=== PATIENT | male | born 1955 | race Caucasian/White ===

== ENCOUNTER → 2017-02-08 11:20 | Outpatient (CLI) | payer MEDICARE | END | disposition home or self-care (01) | LOC: D.MRI 11:20 | DX: M25.512 Pain in left shoulder (principal) ==

== ENCOUNTER → 2018-02-28 13:53 | Outpatient (CLI) | payer MEDICARE | END | disposition home or self-care (01) | LOC: D.MRI 13:53 | DX: M54.2 Cervicalgia (principal) ==

== ENCOUNTER → 2019-10-01 08:23 | Outpatient (CLI) | payer OTHER | END | disposition home or self-care (01) | LOC: D.HCCARDIO 08:23 | PROVIDERS: ATTEND Internal Medicine Cardiovascular Disease | DX: I25.10 Atherosclerotic heart disease of native coronary artery without angina pectoris (principal) ==

== ENCOUNTER 2019-10-13 07:30 | Outpatient (CLI) | payer OTHER ==
[~2019-10-13] VITALS: Ht 182.9 cm; Wt 127.3 kg
--- NOTE | ~2019-10-13 | HEMODYNAMI ---
PATIENT:BRIGIDA [place] MEDICAL RECORD: [id number] : 53 LOCATION:[facility] ADMISSION DATE: 10/13/19 Generatedon:10/13/201911:08 Patient name: BRIGIDA [place] Patient #: [id number] SSN: [id number] : 1955 Date of study: 10/13/2019 Page: Of Hemodynamic Procedure Report Patient Data Patient Demographics Procedure consent was obtained First Name: BRIGIDA Gender: Male Last Name: YANELY : 1955 [facility] Initial: JESSIE Age: 63 year(s) Patient #: [id number] Race: SSN: [id number] Additional ID: [id number] Contact details [address]: [address] [place] [address] State: [place] City: [place] Zip code: [address] Past Medical History Allergies Allergen Reaction Date Comments Reported Other allergy 10/13/2019 N Admission Admission Data Admission Date: 10/13/2019 Admission Time: 7:30 Arrival Date: 10/13/2019 Arrival Time: 0:00 Height (in.): 72.05 BSA: 2.46 (m2) Height (cm.): 183 BMI: 37.92 (kg/m2) Weight (lbs.): 279.99 Weight (kg.): 127 Lab Results Lab Result Date: 10/13/2019 Lab Result Time: 0:00 Biochemistry Name Units Result Min Max BUN mg/dl 10 --(-*--)-- 7 18 Creatinine mg/dl 1 --(--*-)-- 0.6 1.3 eGFR ml/min 79.09621 *-(----)-- 90 120 NONAFRICAN CBC Name Units Result Min Max Hematocrit % 38.3 *-(----)-- 42 54 Hemoglobin g/dl 13 -*(----)-- 13.5 17.5 Procedure Procedure Types Cath Procedure Diagnostic Procedure [facility] w/Coronaries Sedation Charges Moderate Sedation up to 30 minutes PCI Procedure Coronary Stent Coronary Stent Initial Hemochron ACT Test Procedure Description Procedure Date Procedure Date: 10/13/2019 Procedure Start Time: 10:36 Procedure End Time: 11:06 Procedure Staff Name Function Stepan Escalante MD Performing Physician Sharon Felder RT Monitor Edith Candelaria RT Scrub Faith Alanis RN Nurse Procedure Data Cath Procedure Fluoroscopy Diagnostic fluoroscopy Total fluoroscopy Time: 6.6 time: 6.6 min min Diagnostic fluoroscopy Total fluoroscopy dose: dose: 1209 mGy 1209 mGy Contrast Material Contrast Material Type Amount (ml) Isovue 300 93 Entry Location Entry Primary Successful Side Size Upsize Upsize Entry Closure Velazquez ccessful Closure Location (Fr) 1 (Fr) 2 (Fr) Remarks Device Remarks Radial Right 6 Fr Mechanical artery Short Compression Femoral Right 6 Fr Exoseal artery Short Estimated blood loss: 10 ml Diagnostic catheters Device Type Used For End Catheter Placement DIAGNOSTIC [place] 110cm 5 Procedure Fr catheter ([id number]) Procedure Complications No complications Procedure Medications Medication Administration Route Dosage 0.9% NaCl I.V. 100 ml/hr Oxygen etCO2 Nasal cannula 2 l/min Lidocaine 2% added to field 20 Heparin Flush Bag added to field 2 bags (1000units/500ml NS) Radial Cocktail added to field 1 syringe (Verapamil 2mg/Nitro 400mcg/Heparin 1500units) Versed I.V. 2 mg Fentanyl I.V. 50 mcg Heparin Bolus I.V. 5000 units Integrilin (Bolus I.V. 11.3 ml 2mg/ml) Integrilin (Bolus wasted 8.7 ml 2mg/ml) Plavix P.O. 600 mg Hemodynamics Rest BSA: 2.46 (m2) O2 Consumption: Estimated: 294.42 (ml/min) O2 Consumption indexed : Estimated:119.68 (ml/min/m) Heart Rate: 78 (bpm) Pressure Samples Time Site Value (mmHg) Purpose Heart Use Rate(bpm) 10:39 LV 135/14,21 Snapshot 102 10:40 AO 116/93(102) Pullback 81 10:40 LV 115/7,23 Pullback 81 Gradients Valve Time Site 1 Site 2 Mean SEP/DFP Peak To Heart Use (mmHg) (sec/min) Peak Rate (mmHg) (bpm) Aortic 10:40 LV AO 0 81 115/7,23 116/93(102) Calculations Valve P-P Mean Valve Index Valve Source Name Gradient Area Flow (cm2) Aortic 0 0 Snapshots Pre Cath Intra NCS Post Cath Vital Signs Time Heart Resp SPO2 etCO2 NIBP (mmHg) Rhythm Pain Sedation Rate (ipm) (%) (mmHg) Status Level (bpm) 10:26:04 82 35 100 33.9 133/95(123) A-Fib 0 (11) 10(A) , No pain 10:30:33 81 16 99 9.8 132/81(107) A-Fib 0 (11) 10(A) , No pain 10:35:03 79 17 98 30.9 126/73(102) A-Fib 0 (11) 9(A) , No pain 10:39:31 107 12 99 37.7 118/75(108) A-Fib 0 (11) 9(A) , No pain 10:43:55 82 19 98 33.9 114/72(95) A-Fib 0 (11) 9(A) , No pain 10:48:16 80 19 100 33.2 122/81(99) A-Fib 0 (11) 9(A) , No pain 10:52:38 83 20 100 32.4 124/83(92) A-Fib 0 (11) 9(A) , No pain 10:57:04 74 19 100 30.1 131/72(115) A-Fib 0 (11) 10(A) , No pain 11:01:28 81 40 100 36.2 136/88(102) A-Fib 0 (11) 10(A) , No pain 11:05:57 81 20 100 31.7 131/82(101) A-Fib 0 (11) 10(A) , No pain Medications Time Medication Route Dose Verified Delivered Reason Not es Effectiveness by by 10:24:51 0.9% NaCl I.V. 100 Stepan Dangyla used for ml/hr Ava Zeke procedure RN 10:24:57 Oxygen etCO2 2 l/min Stepan Cuevas used for Nasal Ava Zeke procedure cannula MD SIERRA 10:25:05 Lidocaine 2% added 20ml Stepan Ying used for to vial Ava Ava procedure field MD WOO 10:25:10 Heparin Flush added 2 bags Stepan Ying used for Bag to Ava Ava procedure (1000units/500ml field MD WOO NS) 10:25:18 Radial Cocktail added 1 Stepan Ying used for (Verapamil to syringe [facility] procedure 2mg/Nitro field MD WOO 400mcg/Heparin 1500units) 10:33:02 Fentanyl I.V. 50 mcg Stepan Faith for sedation Mostly Kaibeto Zeke sleeping @ MD SIERRA 10:53:10 10:33:53 Versed I.V. 2 mg Stepan Faith for sedation Mostly Kaibeto Zeke sleeping @ RN 10:53:09 10:48:50 Heparin Bolus I.V. 5000 Stepan Faith for cuca ified units [facility] anticoagulation by Dr. MD SIERRA Cooter 10:49:05 Integrilin I.V. 11.3 ml Stepan Faith for (Bolus 2mg/ml) [facility] Alanis antiplatelet RN therapy 10:49:23 Integrilin wasted 8.7 ml Stepan Faith for (Bolus 2mg/ml) [facility] Alanis antiplatelet RN therapy 10:49:32 Plavix P.O. 600 mg Stepan Dangyla for [facility] Everardo Alanis antiplatelet RN therapy Procedure Log Time Note 10:05:51 Informed consent obtained and on chart 10:06:11 Procedure Status Elective Heart Cath (OP). 10:06:13 Time tracking: Regular hours (M-F 7:00 - 5:00) 10:06:16 Plan of Care:Hemodynamics will remain stable., Cardiac rhythm will remain stable., Comfort level will be maintained., Respiratory function will remain adequate., Patient/ family verbilizes understanding of procedure., Procedure tolerated without complication., Recovers from procedure without complications.. 10:06:20 Sharon HODGES(R) (CV) sent for patient. Start room use. 10:06:33 H&P Date Dictated: 09/18/2019 Within 30 days and on chart., H&P Addendum completed by physician on day of procedure. (MUST COMPLETE FOR ALL OUTPATIENTS). 10:14:52 Lab Result : Hemoglobin 13 g/dl 10:14:52 Lab Result : eGFR NONAFRICAN 79.44751 ml/min 10:14:52 Lab Result : BUN 10 mg/dl 10:14:52 Lab Result : Creatinine 1 mg/dl 10:14:52 Lab Result : Hematocrit 38.3 % 10:15:09 Patient allergic to Other allergyPCN 10:15:44 Arrival Date: 10/13/2019 12:00:00 AM 10:15:48 Patient Height : 72.05 inches 10:15:55 Patient Weight : 279.99 lbs 10:17:47 Patient received from Pre/Post Procedure Room to CCL 1 Alert and oriented. Tansferred to table in Supine position. 10:17:48 Warm blankets applied, and lubna hugger turned on for patient comfort. 10:17:49 Correct patient and procedure confirmed by team. 10:17:50 ECG and BP/O2 sat monitors applied to patient. 10:18:19 Lab results completed and on chart. 10:18:32 Stress Test: yes; abnormal INFERIOR AND APICALLY 10:24:42 Vital chart was started 10:24:51 0.9% NaCl 100 ml/hr I.V. was administered by Faith Alanis RN; used for procedure; Verbal order read back and verified. 10:24:57 Oxygen 2 l/min etCO2 Nasal cannula was administered by Faith Alanis RN ; used for procedure; Verbal order read back and verified. 10:25:05 Lidocaine 2% 20ml vial added to field was administered by Stepan Escalante MD; used for procedure; Verbal order read back and verified. 10:25:10 Heparin Flush Bag (1000units/500ml NS) 2 bags added to field was administered by Stepan Escalante MD; used for procedure; Verbal order read back and verified. 10:25:18 Radial Cocktail (Verapamil 2mg/Nitro 400mcg/Heparin 1500units) 1 syring e added to field was administered by Stepan Escalante MD; used for procedure; Verbal order read back and verified. 10:29:17 Risk of Mortality: 0.1 10:29:21 Risk of blood transfusion: 0.1 10:29:24 Risk of MONA: 0.1 10:29:35 Use device set Radial Dx or PCI 10:29:37 ACIST Syringe (98780) opened to sterile field. 10:29:38 Medline Cath Pack ([id number]) opened to sterile field. 10:29:39 Bag Decanter (2002S) opened to sterile field. 10:29:40 ACIST Hand Control (49321) opened to sterile field. 10:29:41 ACIST Manifold (25660) opened to sterile field. 10:29:42 MBrace Wrist Support ([id number]) opened to sterile field. 10:29:45 EMERALD Guide Wire (284-780) opened to sterile field. 10:29:47 SHEATH 6FR RAIN (3931243) opened to sterile field. 10:29:59 Baseline sample Acquired. 10:30:04 Rhythm: atrial fibrillation 10:30:08 Full Disclosure recording started 10:30:10 - 10:30:11 Pre-procedure instructions explained to patient. 10:30:12 Pre-op teaching completed and patient verbalized understanding. 10:30:14 Family in patients room. 10:30:16 Patient NPO since Midnight. 10:30:22 Is the patient allergic to Iodine/contrast media? No. 10:30:25 Was the patient premedicated? Yes 10:30:28 Is patient on blood thinner?Yes 10:30:44 ACC The patient was administered the following blood thiners within the last 24 hours: Eliquis 10:30:58 Patient diabetic? Yes. 10:31:01 If diabetic: On Metformin? Yes 10:31:16 If on Metformin: Last Dose? 10/12/2019 10:31:18 ----Pre-sedation anethsthesia assessment.---- 10:31:28 Previous problem with sedation/anesthesia? No ? 10:31:31 Snore? Yes 10:31:34 Sleep apnea? No 10:31:38 Deviated septum? Unknown 10:31:44 Opens mouth fully? Yes 10:31:47 Sticks out tongue? Yes 10:31:50 Airway obstruction? No ? 10:31:55 Dentures? No ? 10:32:05 Pre procedure: right dorsailis pedis pulse 1+ Palpable, but thready & weak; easily obliterated 10:32:18 IV patent on arrival in left forearm with 0.9% NaCl at KVO. 10:32:27 Right Radial & Right Groin area was prepped with chlora-prep and draped in sterile fashion 10:32:29 Alarms reviewed by R. N. 10:32:30 Sharps counted by scrub and verified by R.N. 10:32:32 Physician arrived 10:32:34 --------ALL STOP TIME OUT------ 10:32:34 Final Timeout: patient, procedure, and site verified with staff and physician. All members of the team are in agreement. 10:32:43 Right Radial & Right Groin site verified by team. 10:32:49 Fire Safety Assessment: A--An alcohol-based skin anteseptic being used preoperatively., C--Open oxygen or nitrous oxide is being used., D--An ESU, laser, or fiber-optic light is being used. 10:32:53 Physical assessment completed. ASA score P 2 - A patient with mild systemic disease as per Stepan Escalante MD. 10:33:01 2) 60-89 Mildly reduced kidney function, and other findings (as for stage 1) point to kidney disease. 10:33:02 Fentanyl 50 mcg I.V. was administered by Faith Alanis RN; for sedation ; Verbal order read back and verified. 10:33:19 Maximum allowable contrast dose (3.7 X eGFR X 0.75)222 ml. 10:33:25 Sedation plan: IV Moderate Sedation Medication:Versed, Fentanyl 10:33:31 Procedure started. 10:33:53 Versed 2 mg I.V. was administered by Faith Alanis RN; for sedation; Verbal order read back and verified. 10:35:35 Zero performed for pressure channel P1 10:36:25 Local anesthetic to right radial artery with Lidocaine 2% by Stepan Escalante MD.INITIAL ACCESS ONLY 10:36:39 A 6 Fr Short sheath was inserted into the Right Radial artery 10:38:11 A DIAGNOSTIC [place] 110cm 5 Fr catheter ([id number]) was advanced over the wire and used for Procedure. 10:39:26 LV gram done using SUTHERLAND 10:39:30 Injector settings: Ml/sec: 5, Volume: 15, 10:39:37 LV hemodynamics recorded. 10:40:09 EF : 55 % 10:40:33 RCA angiography performed. 10:40:37 Injector settings: Ml/sec: 3, Volume: 6, 10:42:13 Catheter removed. 10:42:28 GUIDE 6FR XBLAD 3.5 catheter ([id number]) opened to sterile field. 10:42:58 LCA angiography performed WITH THE 6 MONGOLIAN xblad 3.5 guide. 10:43:39 Injector settings: Ml/sec: 3, Volume: 6, 10:44:25 Catheter removed. 10:44:26 Proceeding to intervention. 10:47:03 Local anesthetic to right femoral artery with Lidocaine 2% by Stepan Mcgee MD.ADDITIONAL ACCESS 10:47:14 SHEATH 6FR [place] (HMI391) opened to sterile field. 10:47:23 INFLATOR Merit BasixCompak (AH2431) opened to sterile field. 10:47:45 GUIDE 6FR HS I catheter (LA6HSI) opened to sterile field. 10:47:56 WHISPER 300cm guide wire ([id number]) opened to sterile field. 10:48:28 A 6 Fr Short sheath was inserted into the Right Femoral artery 10:48:39 6 Fr HS1 guide catheter was inserted over the wire 10:48:45 ACC Pre-intervention RAIMUNDO Flow is 3. 10:48:50 Heparin Bolus 5000 units I.V. was administered by Faith Alanis RN; for anticoagulation; verified by Dr. Morales Verbal order read back and verified. 10:49:05 Integrilin (Bolus 2mg/ml) 11.3 ml I.V. was administered by Faith lacy RN; for antiplatelet therapy; Verbal order read back and verified. 10:49:20 Pre PCI Site: [place] dRCA has 90% stenosis. 10:49:23 Integrilin (Bolus 2mg/ml) 8.7 ml wasted was administered by Faith Alanis RN; for antiplatelet therapy; Verbal order read back and verified. 10:49:26 [id number] wire advanced. 10:49:32 Plavix 600 mg P.O. was administered by Faith Alanis RN; for antiplatelet therapy; Verbal order read back and verified. 10:52:10 Inflate balloon Inflation number: 1 A EUPHORA 3.0 x 15 Balloon ([id number]) was prepped and advanced across the Dist RCA , then inflated to 8 CATA for 0:15 (min:sec) . 10:52:21 Inflation number: 2 The EUPHORA 3.0 x 15 Balloon ([id number]) was reinflated across the Dist RCA , to 10 CATA for 0:00 (min:sec) . 10:52:52 Inflation number: 3 The EUPHORA 3.0 x 15 Balloon ([id number]) was reinflated across the Dist RCA , to 12 CATA for 0:21 (min:sec) . 10:53:09 Effectiveness of Versed delivered @ 10:33:53 is: Mostly sleeping 10:53:10 Effectiveness of Fentanyl delivered @ 10:33:02 is: Mostly sleeping 10:53:14 Inflation number: 4 The EUPHORA 3.0 x 15 Balloon ([id number]) was reinflated across the Dist RCA , to 12 CATA for 0:15 (min:sec) . 10:53:47 Inflation number: 5 The EUPHORA 3.0 x 15 Balloon ([id number]) was reinflated across the Dist RCA , to 12 CATA for 0:09 (min:sec) . 10:54:58 Inflation number: 6 The EUPHORA 3.0 x 15 Balloon ([id number]) was reinflated across the Dist RCA , to 12 CATA for 0:15 (min:sec) . 10:55:25 Balloon removed over the wire. 10:57:55 Place stent Inflation Number: 1 A MICA OTW 3.0 x 22 stent ([id number]) was prepped and advanced across the Dist RCA1 . The stent was deployed at 14 CATA for 0:21 (min:sec) . 10:58:24 Stent catheter was removed intact over wire. 10:58:27 ACC Post-intervention RAIMUNDO Flow is 3. 10:58:36 Post PCI Site: [place] dRCA has 0% stenosis. 10:58:41 Wire removed. 10:58:42 Guide catheter removed. 10:58:46 TR BAND Large ([id number]) opened to sterile field. 10:58:54 Tegaderm 4 x 4 (1626W) opened to sterile field. 10:59:41 EXOSEAL 6Fr (EX600) opened to sterile field. 11:01:08 Sheath removed intact; hemostasis achieved with Exoseal to the Right Femoral artery. 11:01:22 Sheath removed intact; hemostasis achieved with Mechanical Compression to the Right Radial artery. 11:02:36 Procedure ended.(Physican Out) 11:02:54 Contrast amount:Isovue 300 93ml. 11:03:03 ACT drawn and resulted at 247 seconds. (normal therapeutic range 180-24 0 seconds). 11:03:03 Fluoroscopy time 06.60 minutes. 11:03:09 Fluoroscopy dose: 1209 mGy 11:03:09 Flurop Dose total: 1209 11:03:17 Dose Area Product 94239 mGy/cm. 11:03:21 Maximum allowable dose exceeded? No. 11:03:22 Sharps counted by scrub and verified by R.N. 11:03:29 [place] band inflated with 10cc of air. 11:03:30 Insertion/operative site no bleeding no hematoma. 11:03:36 Post-op/insertion site Right Femoral artery dressed using a 4 x 4 and Tegaderm. 11:03:42 Post right femoral artery:stable 11:03:49 Post right radial artery:stable 11:03:55 Post-procedure physical assessment completed. ASA score P 2 - A patient with mild systemic disease as per Stepan Escalante MD. 11:04:11 Post procedure rhythm: unchanged. 11:04:16 Estimated blood loss: 10 ml 11:04:17 Post procedure instruction explained to patient.Patient verbalizes understanding. 11:04:18 Patient needs reinforcement of post procedure teaching. 11:05:08 Procedure type changed to Cath procedure, Diagnostic procedure, LHC, C w/Coronaries, Sedation Charges, Moderate Sedation up to 30 minutes, PCI procedure, Coronary Stent, Coronary Stent Initial, Hemochron ACT Test 11:05:11 Procedure and supply charges have been captured, reviewed, submitted an d are correct. 11:06:19 Procedure Complication : No complications 11:06:22 Vital chart was stopped 11:06:25 [facility] Findings: MVD- PCI performed (see procedure note) 11:06:29 Operative report dictated upon procedure completion. 11:06:30 See physician's report for complete and final results. 11:06:32 Report given to Pre/Post Procedure Room. 11:06:36 Patient transfered to Pre/Post Procedure Room with Stretcher. 11:06:39 Procedure ended. 11:06:39 Full Disclosure recording stopped 11:06:52 ACC-PCI Only Patient was given prescriptions, or instructed by Stepan Escalante MD to start/continue the following medications upon discharge: Plavix 11:06:55 End room use (Document Last) Intervention Summary Intervention Notes Time ActionType Lesion and Equipment Action# Pressure Duration Attributes Used 10:52:10 Inflate Dist RCA EUPHORA 3.0 x 1 8 00:15 balloon 15 Balloon ([id number]) 10:52:21 Reinflate Dist RCA EUPHORA 3.0 x 2 10 00:00 balloon 15 Balloon ([id number]) 10:52:52 Reinflate Dist RCA EUPHORA 3.0 x 3 12 00:21 balloon 15 Balloon ([id number]) 10:53:14 Reinflate Dist RCA EUPHORA 3.0 x 4 12 00:15 balloon 15 Balloon ([id number]) 10:53:47 Reinflate Dist RCA EUPHORA 3.0 x 5 12 00:09 balloon 15 Balloon ([id number]) 10:54:58 Reinflate Dist RCA EUPHORA 3.0 x 6 12 00:15 balloon 15 Balloon ([id number]) 10:57:55 Place stent Dist RCA1 MICA OTW 3.0 1 14 00:21 x 22 stent ([id number]) Device Usage Item Name Manufacture Quantity Catalog Hospital Part Current Mini mal Lot# / Number Charge Number Stock Stock Serial# Code ACIST Syringe Acist 1 42945 145233 064493 160556 20 (36249) Medical Systems Inc Medline Cath Medline 1 [id number] 675161 67862 211028 5 Pack ([id number]) Bag Decanter Microtek 1 978471 47378 857293 5 () Medical Inc. ACIST Hand Acist 1 95567 574679 937610 870743 5 Control Medical (95971) Systems Inc ACIST Acist 1 18178 354764 106014 598326 5 Manifold Medical (03491) Systems Inc MBrace Wrist Advanced 1 140-0250-00 958654 06714 633370 5 Support Vascular ([id number]) Dynamics EMERALD Guide Cardinal 1 521-443 867750 061304 223945 5 Wire Health (648-659) SHEATH 6FR Cardinal 1 2309582 900363 0294829 298709 5 RAIN Health (3977623) DIAGNOSTIC Terumo 1 40-8830 289895 196815 491013 5 [place] 110cm 5 Fr catheter (509875) GUIDE 6FR Cardinal 1 [id number] 620948 245352 998733 10 XBLAD 3.5 Health catheter (20697996) SHEATH 6FR Terumo 1 JBV601 386459 727378 157954 40 [place] (SXG732) INFLATOR Merit 1 GA3624 297595 047012 888733 15 [facility] Medical BasixCompak (BW0672) GUIDE 6FR HS Medtronic 1 LA6HSI 678178 90433 801113 1 I catheter (LA6HSI) WHISPER 300cm Rae 1 [id number] 135742 968194 357457 5 guide wire Vascular (0446528WX) EUPHORA 3.0 x Medtronic 1 [id number] 008910 913138 003342 5 [id number] 15 Balloon ([id number]) MICA OTW 3.0 Medtronic 1 [id number] 218740 9693582 382698 5 [id number] x 22 stent ([id number]) Tegaderm 4 x 3M 1 1626W 127917 122108 961471 5 4 (1626W) EXOSEAL 6Fr Cardinal 1 EX600 211194 622428 762011 10 (EX600) Health TR BAND Large Terumo 1 [id number] 714138 474698 620698 40 ([id number]) Signature Audit [place] Stage Time Signature Unsigned Intra-Procedure 10/13/2019 Sharon 11:07:14 AM Emerita RT(R) (CV) Intra-Procedure 10/13/2019 Faith Alanis 11:07:44 AM RN Intra-Procedure 10/13/2019 Stepan Acharya 11:08:10 AM Everardo WOO [facility] [address] [place] [address]
[2019-10-13] MEDS ORDERED: OMEPRAZOLE20 M1 PO (07:54)
[2019-10-13] MEDS ORDERED: ELIQUIS5 MG PO (07:54)
[2019-10-13] MEDS ORDERED: SINEMET 25-1001 EAC1 PO (07:55)
[2019-10-13] MEDS ORDERED: PRAVASTATIN SOD10 MG PO (07:55)
[2019-10-13] MEDS ORDERED: ROPINIROLE HCL0.5 MG PO (07:55)
[2019-10-13] MEDS ORDERED: BENICAR40 MG PO (07:56)
[2019-10-13] MEDS ORDERED: GLUCOPHAGE1000 MG PO (07:56)
[2019-10-13] MEDS ORDERED: FUROSEMIDE40 MG PO (07:56)
[2019-10-13] MEDS ORDERED: BAYER CHEWABLE81 MG PO (07:57)
[2019-10-13 08:06] VITALS: BP 163/98; Ht 182.9 cm; Wt 127.3 kg
[2019-10-13 08:36] LABS: BASOPHILS 0.8 % (0-2); EOSINOPHILS 1.5 % (0-7); HEMATOCRIT 38.3 % (42.0-54.0); IMMATURE GRANULOCYTES 0.4 % (0-5); LYMPHOCYTES 25.3 % (15-50); MCH 30.2 pg (26.0-34.0); MCHC 33.9 g/dL (31.0-37.0); MCV 88.9 fL (80.0-100.0); MEAN PLATELET VOLUME 9.8 fL (7.4-10.4); MONOCYTES 12.2 % (2-11); NEUTROPHILS 59.8 % (40-80); PLATELET COUNT 268 10x3/uL (130-400); RBC 4.31 10x6/uL (4.20-6.10); RDW 13.8 % (11.5-14.5); WBC 5.2 10x3/uL (4.8-10.8)
[2019-10-13 08:50] LABS: ALT (SGPT) 13 U/L (10-68); CALC OSMOLALITY 270 mosm/kg (275-300); CALCIUM 8.9 mg/dL (8.5-10.1); CHLORIDE - SERUM 100 mmol/L (98-107); CHOL - HDL RATIO 3.7 ratio (2.3-4.9); CHOLESTEROL, TOTAL 129 mg/dL (0-200); GLUCOSE 127 mg/dL (74-106); HDL CHOLESTEROL 35 mg/dL (32-96); LDL CHOLESTEROL 70 mg/dL (0-100); POTASSIUM - SERUM 4.3 mmol/L (3.5-5.1); SODIUM 135 mmol/L (136-145); TRIGLYCERIDE 120 mg/dL (30-200); UREA NITROGEN 10 mg/dL (7-18); eGFR NON AFRICAN AMERICAN 80 mL/min (90-120)
[2019-10-13] MEDS ORDERED: PLAVIX75 MG PO (11:14)
--- NOTE | 2019-10-13 11:15 | NUR ---
PATIENT ARRIVED TO ROOM 3, PLACED ON CM. VSS ON ROOM AIR. RIGHT RADIAL SITE WITH Z BAND AND WRIST IMMOBILIZER IN PLACE, RIGHT GROIN 6F EXOSEAL WITH DRESSING IN PLACE, NO S/S OF BLEEDING OR HEMATOMA AT EITHER LOCATION. NO C/O PAIN, NUMBNESS, OR TINGLING. PHYSICIAN AT BEDSIDE TO UPDATE SPOUSE. PATIENT GIVEN WATER PER REQUEST, TOLERATING WITH NO N/V.
--- NOTE | 2019-10-13 11:30 | NUR ---
PATIENT AWAKE, SPOUSE PRESENT AT BEDSIDE ASSISTING PATIENT IN EATING TURKEY SANDWICH. VSS ON ROOM AIR. RIGHT GROIN AND RADIAL SITES ARE CDI, NO S/S OF BLEEDING OR HEMATOMA. NO C/O PAIN, NUMBNESS, OR TINGLING.
--- NOTE | 2019-10-13 12:00 | NUR ---
PATIENT AWAKE, VSS ON ROOM AIR. RIGHT GROIN AND RADIAL SITES ARE CDI, NO S/S OF BLEEDING OR HEMATOMA. PATIENT VOIDED 150CC OF YELLOW URINE WITH NO DIFFICULTY. TOLERATING PO FLUIDS, NO N/V. NO C/O PAIN, NUMBNESS, OR TINGLING.
--- NOTE | 2019-10-13 12:30 | NUR ---
PATIENT INTERMITTENTLY RESTING, VSS ON ROOM AIR. RIGHT GROIN AND RADIAL SITES ARE CDI, NO S/S OF BLEEDING OR HEMATOMA. NO C/O PAIN, NUMBNESS, OR TINGLING. NO N/V, TOLERATING PO FLUIDS AND FOOD. SPOUSE PRESENT AT BEDSIDE.
--- NOTE | 2019-10-13 13:00 | NUR ---
PATIENT RESTING, SPOUSE PRESENT AT BEDSIDE. VSS ON ROOM AIR. RIGHT GROIN DRESSING IS CDI, NO S/S OF BLEEDING OR HEMATOMA. RIGHT RADIAL SITE IS CDI, NO S/S OF BLEEDING OR HEMATOMA. NO C/O PAIN, NUMBNESS, OR TINGLING. 2+ PEDAL PULSES. NO N/V.
--- NOTE | 2019-10-13 13:30 | NUR ---
PATIENT RESTING, VSS ON ROOM AIR. RIGHT GROIN AND RIGHT RADIAL SITES ARE CDI, NO S/S OF BLEEDING OR HEMATOMA. NO C/O PAIN, NUMBNESS, OR TINGLING.
--- NOTE | 2019-10-13 14:00 | NUR ---
5CC OF AIR REMOVED FROM Z BAND, NO S/S OF BLEEDING OR HEMATOMA. HEAD OF BED ELEVATED TO 75 DEGREES. RIGHT GROIN DRESSING SITE IS CDI, NO S/S OF BLEEDING OR HEMATOMA. NO C/O PAIN, NUMBNESS, OR TINGLING. VSS ON ROOM AIR. NO N/V. SPOUSE PRESENT AT BEDSIDE.
--- NOTE | 2019-10-13 14:30 | NUR ---
REMAINING AIR REMOVED FROM Z BAND, NO S/S OF BLEEDING OR HEMATOMA. NO C/O PAIN, NUMBNESS, OR TINGLING. VSS ON ROOM AIR. RIGHT GROIN AND RIGHT RADIAL DRESSINGS ARE CDI, NO S/S OF BLEEDING OR HEMATOMA. NO N/V. PERIPHERAL IV REMOVED WITH CATHLON FULLY INTACT. PATIENT DISCONNECTED FROM MONITORS TO GET DRESSED.
--- NOTE | 2019-10-13 15:00 | NUR ---
PATIENT TRANSPORTED VIA WHEELCHAIR TO CAR WITH SPOUSE DRIVING, ALL BELONGINGS WITH PATIENT.
--- NOTE | 2019-10-14 13:08 | OP ---
PATIENT NAME: BRIGIDA NY MEDICAL RECORD: [id number] :53 LOCATION:D.CAT ADMISSION DATE: SURGEON: CINDY MUSTAFA MD DATE OF OPERATION: 10/13/2019 PROCEDURE: Left heart catheterization, selective coronary angiography, right radial and femoral approach. We used radial for diagnostic and femoral for intervention. FINDINGS: Left ventriculography in the 30-degree SUTHERLAND view: Normal wall motion and normal systolic function. CORONARY ANATOMY: LEFT MAIN: Left main is free of disease. LAD: Has multiple areas of 70% to 80% stenosis both pre and post-stent. CIRCUMFLEX: Moderate size circumflex free of disease. RIGHT CORONARY ARTERY: The distal portion has a long diffuse stenosis typical diabetic 90% to its most severe down to 80% at the takeoff of the PD and PL. PLAN: Intervention in a staged fashion with right coronary today and LAD at a later date. A 6-Kyrgyz sheath placed in the right femoral artery. Hockey stick guiding catheter provided excellent guide catheter support followed by a 300 cm Whisper wire, it was placed across the long diffuse 90% stenosis right down this portion of this vessel. Pre-deployment balloon used was a 3.0 x 15 mm [place] up and down the lesion up to 14 atmospheres. This showed some proximal dissection with some contrast hanging in discrete area. Otherwise, nice pumping in the distal vasculature. Next, stent deployed was a 3.0 x 22 mm Roney drug-eluting stent up to 14 atmospheres for 45 seconds. Final angiography shows excellent resolution of the entire stenosis. No significant residual. RAIMUNDO flow was 3 throughout the procedure. There was excellent pumping in the distal vasculature as described above. Plavix loaded in the lab. Sheath closed with ExoSeal device. TR band on the radial side. TRANSINT:[id number] Voice Confirmation ID: [id number] DOCUMENT ID: [id number] CINDY MUSTAFA MD at 1308 CC: [id number] DICTATION DATE: 10/13/19 1108 PILATES COORDINATOR: 10/13/191951 DEP CLI 10/13/19 [facility] [address] [place] [address]
== END 2019-10-13 15:00 ==
LOC: D.CATH 07:30
PROVIDERS: ATTEND Internal Medicine Interventional Cardiology
DX: I25.10 Atherosclerotic heart disease of native coronary artery without angina pectoris (principal); I10 Essential (primary) hypertension
CPT/HCPCS: 93458; C9600

== ENCOUNTER 2019-11-10 06:42 | Outpatient (CLI) | payer OTHER ==
[~2019-11-10] VITALS: Ht 182.9 cm; Wt 123.4 kg
--- NOTE | ~2019-11-10 | HEMODYNAMI ---
PATIENT:BRIGIDA NY MEDICAL RECORD: [id number] : 53 LOCATION:DSamuelCAT ADMISSION DATE: 11/10/19 Generatedon:11/10/20199:05 Patient name: BRIGIDA NY Patient #: [id number] SSN: [id number] : 1955 Date of study: 11/10/2019 Page: Of Hemodynamic Procedure Report Patient Data Patient Demographics Procedure consent was obtained First Name: BRIGIDA Gender: Male Last Name: YANELY : 1955 [facility] Initial: JESSIE Age: 63 year(s) Patient #: [id number] Race: SSN: [id number] Additional ID: [id number] Contact details [address]: [address] [place] [address] State: [place] City: [place] Zip code: [address] Past Medical History Allergies Allergen Reaction Date Comments Reported Other allergy 10/13/2019 PCN Other allergy 11/10/2019 PENICILLINS Admission Admission Data Admission Date: 11/10/2019 Admission Time: 6:42 Arrival Date: 11/10/2019 Arrival Time: 0:00 Height (in.): 72.05 BSA: 2.43 (m2) Height (cm.): 183 BMI: 36.73 (kg/m2) Weight (lbs.): 271.17 Weight (kg.): 123 Lab Results Lab Result Date: 11/10/2019 Lab Result Time: 0:00 Biochemistry Name Units Result Min Max BUN mg/dl 9 --(*---)-- 7 18 Creatinine mg/dl 0.9 --(-*--)-- 0.6 1.3 eGFR ml/min 90 --(*---)-- 90 120 NONAFRICAN CBC Name Units Result Min Max Hematocrit % 37.4 *-(----)-- 42 54 Hemoglobin g/dl 12.7 -*(----)-- 13.5 17.5 Procedure Procedure Types Cath Procedure Diagnostic Procedure Sedation Charges Moderate Sedation up to 15 minutes PCI Procedure Coronary Stent Coronary Stent Initial Hemochron ACT Test Procedure Description Procedure Date Procedure Date: 11/10/2019 Procedure Start Time: 8:47 Procedure End Time: 9:03 Procedure Staff Name Function Stepan Escalante MD Performing Physician Sharon Felder RT Monitor Faith Alanis RN Nurse Coby Soto RT Scrub Edith Candelaria RT [employer] Commission Agent Procedure Data Cath Procedure Fluoroscopy Diagnostic fluoroscopy Total fluoroscopy Time: 3.1 time: 3.1 min min Diagnostic fluoroscopy Total fluoroscopy dose: 669 dose: 669 mGy mGy Contrast Material Contrast Material Type Amount (ml) Isovue 300 57 Entry Location Entry Primary Successful Side Size Upsize Upsize Entry Closure Succes sful Closure Location (Fr) 1 (Fr) 2 (Fr) Remarks Device Remarks Femoral Right 6 Fr Exoseal artery Short Estimated blood loss: 10 ml Procedure Complications No complications Procedure Medications Medication Administration Route Dosage 0.9% NaCl I.V. 100 ml/hr Oxygen etCO2 Nasal cannula 2 l/min Lidocaine 2% added to field 20 Heparin Flush Bag added to field 2 bags (1000units/500ml NS) Versed I.V. 2 mg Fentanyl I.V. 50 mcg Heparin Bolus I.V. 5000 units Hemodynamics Rest BSA: 2.43 (m2) HGB: 12.7 (g/dl) O2 Consumption: Estimated: 295.19 (ml/min) O2 Co nsumption indexed: Estimated:121.48 (ml/min/m) Heart Rate: 82 (bpm) Snapshots Pre Cath Intra NCS Post Cath Vital Signs Time Heart Resp SPO2 etCO2 NIBP (mmHg) Rhythm Pain Sedation Rate (ipm) (%) (mmHg) Status Level (bpm) 8:30:03 88 26 98 33.6 156/106(143) A-Fib 0 (11) 10(A) , No pain 8:34:38 78 18 93 23.9 156/99(134) A-Fib 0 (11) 10(A) , No pain 8:39:12 93 18 96 24.6 153/101(134) A-Fib 0 (11) 10(A) , No pain 8:43:41 86 17 96 35.8 154/103(141) A-Fib 0 (11) 10(A) , No pain 8:48:15 83 23 98 34.3 165/101(141) A-Fib 0 (11) 9(A) , No pain 8:52:47 95 20 97 32.1 158/96(122) A-Fib 0 (11) 9(A) , No pain 8:57:22 91 22 98 35.1 161/105(140) A-Fib 0 (11) 9(A) , No pain 9:01:58 86 20 97 13.4 151/94(130) A-Fib 0 (11) 10(A) , No pain Medications Time Medication Route Dose Verified Delivered Reason Notes Effectiveness by by 8:25:02 0.9% NaCl I.V. 100 Stepan Faith used for ml/hr [facility] Alanis procedure MD [facility]ERRA 8:25:09 Oxygen etCO2 2 Stepan Faith used for Nasal l/min [facility] Ever[facility] Alanis procedure cannula MD [facility] 8:25:14 Lidocaine 2% added 20ml Stepan Stepan for local to vial [facility] anesthetic field MD WOO 8:25:17 Heparin Flush added 2 Stepan Stepan used for Bag to bags [facility] procedure (1000units/500ml field MD WOO NS) 8:46:19 Versed I.V. 2 mg Stepan Faith for sedation St Everardo Alanis MD RN 8:46:24 Fentanyl I.V. 50 Stepan Faith for sedation mcg St Everardo Alanis MD RN 8:50:09 Heparin Bolus I.V. 5000 Stepan Faith for verifi ed units AvaEverardo Alanis anticoagulation with Dr. WOO RN Andrew Procedure Log Time Note 8:11:30 Informed consent obtained and on chart 8:12:41 Time tracking: Regular hours (M-F 7:00 - 5:00) 8:17:37 Procedure Status PCI. 8:18:39 Lab Result : eGFR NONAFRICAN 90 ml/min 8:18:39 Lab Result : Creatinine 0.9 mg/dl 8:18:39 Lab Result : BUN 9 mg/dl 8:18:39 Lab Result : Hematocrit 37.4 % 8:18:39 Lab Result : Hemoglobin 12.7 g/dl 8:18:59 Procedure type changed to Cath procedure, Diagnostic procedure, Sedation Charges, Moderate Sedation up to 15 minutes, PCI procedure, Coronary Stent, Coronary Stent Initial, Hemochron ACT Test 8:19:06 Arrival Date: 11/10/2019 12:00:00 AM 8:19:13 Patient Height : 72.05 inches 8:19:19 Patient Weight : 271.17 lbs 8:20:08 Edith Candelaria RT(R) sent for patient. Start room use. 8:20:15 Plan of Care:Hemodynamics will remain stable., Cardiac rhythm will remain stable., Comfort level will be maintained., Respiratory function will remain adequate., Patient/ family verbilizes understanding of procedure., Procedure tolerated without complication., Recovers from procedure without complications.. 8:20:28 Lab results completed and on chart. 8:20:57 Patient allergic to Other allergyPENICILLINS 8:21:43 Stress Test: yes; abnormal INFERIOR,APICAL, AND SEPTAL 8:25:02 0.9% NaCl 100 ml/hr I.V. was administered by Faith Alanis RN; used for procedure; Verbal order read back and verified. 8:25:09 Oxygen 2 l/min etCO2 Nasal cannula was administered by Faith Alanis RN; used for procedure; Verbal order read back and verified. 8:25:14 Lidocaine 2% 20ml vial added to field was administered by Stepan Escalante MD; for local anesthetic; Verbal order read back and verified. 8:25:17 Heparin Flush Bag (1000units/500ml NS) 2 bags added to field was administered by Stepan Escalante MD; used for procedure; Verbal order read back and verified. 8:28:20 Patient received from Pre/Post Procedure Room to CCL 1 Alert and oriented. Tansferred to table in Supine position. 8:28:21 Warm blankets applied, and lubna hugger turned on for patient comfort. 8:28:22 Correct patient and procedure confirmed by team. 8:28:22 ECG and BP/O2 sat monitors applied to patient. 8:28:26 Vital chart was started 8:28:28 Full Disclosure recording started 8:28:31 H&P Date Dictated: 11/10/2019 New H&P dictated by physician.. 8:28:37 Rhythm: sinus rhythm 8:28:41 Pre-procedure instructions explained to patient. 8:28:42 Pre-op teaching completed and patient verbalized understanding. 8:28:47 Family in patients room. 8:28:50 Patient NPO since Breakfast. 8:28:52 Is patient on blood thinner?Yes 8:28:57 ACC The patient was administered the following blood thiners within the last 24 hours: ACCPlavix 8:28:58 Patient diabetic? Yes. 8:29:00 If diabetic: On Metformin? Yes 8:29:56 Snore? Yes 8:29:57 Sleep apnea? No 8:29:58 Deviated septum? No 8:29:59 Opens mouth fully? Yes 8:29:59 Sticks out tongue? Yes 8:30:01 Airway obstruction? No ? 8:30:03 Dentures? No ? 8:30:05 Pre procedure: right dorsailis pedis pulse 1+ Palpable, but thready & weak; easily obliterated 8:30:15 IV patent on arrival in left hand with 0.9% NaCl at [facility]. 8:30:52 Risk of Mortality: .1 8:30:54 Risk of blood transfusion: .1 8:30:56 Risk of MONA: .1 8:31:00 Right groin area was prepped with chlora-prep and draped in sterile fashion 8:31:01 Alarms reviewed by R. N. 8:31:02 Sharps counted by scrub and verified by R.N. 8:31:07 Use device set CATH PACK 8:31:08 ACIST Syringe (01954) opened to sterile field. 8:31:08 ACIST Hand Control (67900) opened to sterile field. 8:31:09 ACIST Manifold (56916) opened to sterile field. 8:31:09 Medline Cath Pack ([id number]) opened to sterile field. 8:31:10 Bag Decanter (2002S) opened to sterile field. 8:31:10 EMERALD Guide Wire (502-058) opened to sterile field. 8:31:25 SHEATH 6FR Blackwell (ABY259) opened to sterile field. 8:31:25 INFLATOR Merit BasixCompak (GQ7932) opened to sterile field. 8:31:26 WHISPER 300cm guide wire ([id number]) opened to sterile field. 8:31:42 Baseline sample Acquired. 8:41:18 Physician arrived 8:41:20 --------ALL STOP TIME OUT------ 8:41:21 Final Timeout: patient, procedure, and site verified with staff and physician. All members of the team are in agreement. 8:41:23 Right groin site verified by team. 8:41:29 Fire Safety Assessment: A--An alcohol-based skin anteseptic being used preoperatively., C--Open oxygen or nitrous oxide is being used., D--An ESU, laser, or fiber-optic light is being used. 8:41:35 Physical assessment completed. ASA score P 2 - A patient with mild systemic disease as per Stepan Escalante MD. 8:41:39 1) 90+ Normal kidney functon but urine findings or structural abnormalities or genetic trait point to kidney disease. 8:41:44 Maximum allowable contrast dose (3.7 X eGFR X 0.75)250 ml. 8:41:51 Sedation plan: IV Moderate Sedation Medication:Versed, Fentanyl 8:45:04 Zero performed for pressure channel P1 8:46:19 Versed 2 mg I.V. was administered by Faith Alanis RN; for sedation; Verbal order read back and verified. 8:46:24 Fentanyl 50 mcg I.V. was administered by Faith Alanis RN; for sedation; Verbal order read back and verified. 8:47:10 Procedure started. 8:47:18 Local anesthetic to right femoral artery with Lidocaine 2% by Stepan Escalante MD.INITIAL ACCESS ONLY 8:47:46 A 6 Fr Short sheath was inserted into the Right Femoral artery 8:47:59 GUIDE 6FR XBLAD 3.5 catheter ([id number]) opened to sterile field. 8:48:48 6 Fr XBLAD3.5 guide catheter was inserted over the wire 8:50:06 LCA angiography performed. 8:50:09 Heparin Bolus 5000 units I.V. was administered by Faith Alanis RN; for anticoagulation; verified with Dr. Morales Verbal order read back and verified. 8:50:11 Injector settings: Ml/sec: 3, Volume: 6, 8:50:59 ACC Pre-intervention RAIMUNDO Flow is 3. 8:51:08 Pre PCI Site: [place] mLAD has 85% stenosis. 8:51:28 IHHLLOY558 wire advanced. 8:54:08 Place stent Inflation Number: 1 A MICA OTW 3.5 x 18 stent ([id number]) was prepped and advanced across the Mid LAD . The stent was deployed at 14 CATA for 0:10 (min:sec) . 8:55:01 Inflation number: 1 The stent balloon was then re-inflated across the Mid LAD to 10 CATA for 0:15 (min:sec) . 8:56:25 Inflation number: 2 The stent balloon was then re-inflated across the Mid LAD to 8 CATA for 0:00 (min:sec) . 8:58:33 Stent catheter was removed intact over wire. 8:58:34 Wire removed. 8:58:35 Guide catheter removed. 8:58:38 ACC Post-intervention RAIMUNDO Flow is 3. 8:58:50 Post PCI Site: [place] mLAD has 0% stenosis. 8:59:07 EXOSEAL 6Fr (EX600) opened to sterile field. 8:59:25 Sheath removed intact; hemostasis achieved with Exoseal to the Right Femoral artery. 8:59:31 Procedure ended.(Physican Out) 9:00:07 Fluoroscopy time 03.10 minutes. 9:00:13 Fluoroscopy dose: 669 mGy 9:00:13 Flurop Dose total: 669 9:00:22 Dose Area Product 14245 mGy/cm. 9:00:30 Contrast amount:Isovue 300 57ml. 9:00:33 Maximum allowable dose exceeded? No. 9:00:34 Sharps counted by scrub and verified by R.N. 9:00:41 Post-op/insertion site Right Femoral artery dressed using a 4 x 4 and Tegaderm. 9:00:47 Post-procedure physical assessment completed. ASA score P 2 - A patient with mild systemic disease as per Stepan Escalante MD. 9:00:51 Post procedure rhythm: unchanged. 9:00:55 Estimated blood loss: 10 ml 9:00:57 Post procedure instruction explained to patient.Patient verbalizes understanding. 9:00:59 Patient needs reinforcement of post procedure teaching. 9:01:45 Procedure and supply charges have been captured, reviewed, submitted and are correct. 9:02:20 ACT drawn and resulted at 224 seconds. (normal therapeutic range 180-240 seconds). 9:02:48 Procedure Complication : No complications 9:02:51 Vital chart was stopped 9:02:54 [facility] Findings: MVD- PCI performed (see procedure note) 9::59 Operative report dictated upon procedure completion. 9:03:00 See physician's report for complete and final results. 9:03:03 Report given to Pre/Post Procedure Room. 9:03:08 Patient transfered to Pre/Post Procedure Room with Stretcher. 9:03:25 Procedure ended. 9:03:25 Full Disclosure recording stopped 9:03:54 ACC-PCI Only Patient was given prescriptions, or instructed by Stepan Escalante MD to start/continue the following medications upon discharge: Plavix 9:03:56 End room use (Document Last) Intervention Summary Intervention Notes Time ActionType Lesion and Equipment Action# Pressure Duration Attributes Used 8:54:08 Place stent Mid CX MICA OTW 3.5 1 14 00:10 x 18 stent ([id number]) 8:55:01 Reinflate Mid LAD MICA OTW 3.5 1 10 00:15 stent x 18 stent balloon ([id number]) 8:56:25 Reinflate Mid LAD MICA OTW 3.5 2 8 00:00 stent x 18 stent balloon ([id number]) Device Usage Item Name Manufacture Quantity Catalog Hospital Part Current Mini [facility] Lot# / Number Charge Number Stock Stock Serial# Code ACIST Syringe Acist 1 27080 780763 142473 783287 20 (03934) Medical Systems Inc ACIST Hand Acist 1 38010 482484 300219 776957 5 Control Medical (37271) Systems Inc ACIST Acist 1 07628 892881 161621 000949 5 Manifold Medical (45591) Systems Inc Medline Cath Medline 1 [id number] 630169 17398 020284 5 Pack ([id number]) Bag Decanter Microtek 1 2001S 535139 15546 414219 5 (2001S) Medical Inc. EMERALD Guide Cardinal 1 502455 176466 111706 096452 5 Wire Health (502455) SHEATH 6FR Terumo 1 [id number] 028261 480675 431686 40 Blackwell (QPA792) INFLATOR Merit 1 MO9010 950338 825059 414808 15 [facility] Medical BasixCompak (PK8336) WHISPER 300cm Rae 1 [id number] 623981 908997 535881 5 guide wire Vascular ([id number]) GUIDE 6FR Cardinal 1 [id number] 397785 022286 414845 10 XBLAD 3.5 Health catheter (37716371) MICA OTW 3.5 Medtronic 1 [id number] 569841 0332364 255531 5 [id number] x 18 stent ([id number]) EXOSEAL 6Fr Cardinal 1 EX600 528658 173524 711704 10 (EX600) Health Signature Audit [place] Stage Time Signature Unsigned Intra-Procedure 11/10/2019 Sharon 9:04:33 AM Emerita RT(R) (CV) Intra-Procedure 11/10/2019 Faith Alanis 9:05:09 AM RN Intra-Procedure 11/10/2019 Stepan Acharya 9:05:37 AM Everardo WOO [address] [place] [address]
[~2019-11-10 06:42] MED LIST: BAYER CHEWABLE81 MG PO; BENICAR40 MG PO; ELIQUIS5 MG PO; FUROSEMIDE40 MG PO; GLUCOPHAGE1000 MG PO; OMEPRAZOLE20 M1 PO; PLAVIX75 MG PO; PRAVASTATIN SOD10 MG PO; ROPINIROLE HCL0.5 MG PO; SINEMET 25-1001 EAC1 PO
[2019-11-10] MEDS ORDERED: MULTI-DAY VITAM1 TAB PO (07:28)
[2019-11-10 07:47] VITALS: BP 155/89; Ht 182.9 cm; Wt 123.4 kg
[2019-11-10 07:47] LABS: BASOPHILS 0.5 % (0-2); EOSINOPHILS 1.1 % (0-7); HEMATOCRIT 37.4 % (42.0-54.0); HEMOGLOBIN 12.7 g/dL (13.5-17.5); IMMATURE GRANULOCYTES 0.5 % (0-5); LYMPHOCYTES 26.9 % (15-50); MCV 88.4 fL (80.0-100.0); MEAN PLATELET VOLUME 9.4 fL (7.4-10.4); MONOCYTES 10.8 % (2-11); NEUTROPHILS 60.2 % (40-80); PLATELET COUNT 246 10x3/uL (130-400); RBC 4.23 10x6/uL (4.20-6.10); RDW 13.7 % (11.5-14.5); WBC 5.7 10x3/uL (4.8-10.8)
[2019-11-10 08:02] LABS: CALC OSMOLALITY 270 mosm/kg (275-300); CALCIUM 8.9 mg/dL (8.5-10.1); CARBON DIOXIDE 24.9 mmol/L (21.0-32.0); CHLORIDE - SERUM 103 mmol/L (98-107); CREATININE - SERUM 0.9 mg/dL (0.6-1.3); GLUCOSE 138 mg/dL (74-106); POTASSIUM - SERUM 4.1 mmol/L (3.5-5.1); SODIUM 135 mmol/L (136-145); UREA NITROGEN 9 mg/dL (7-18); eGFR NON AFRICAN AMERICAN 90 mL/min (90-120)
--- NOTE | 2019-11-10 09:17 | NUR ---
PT ARRIVED BY STRETCHER. PLACED ON MONITORS. ASSESSMENT COMPLETED. VSS. FAMILY AT BEDSIDE. CALL LIGHT WITHIN REACH.
--- NOTE | 2019-11-10 09:33 | NUR ---
RIGHT GROIN DRESSING C/D/I. NO S/S OF HEMATOMA NOTED. CALL LIGHT WITHIN REACH. VSS AT THIS TIME. DENIES NAUSEA/PAIN AT THIS TIME. FAMILY AT BEDSIDE. WILL CONTINUE TO MONITOR.
--- NOTE | 2019-11-10 10:02 | NUR ---
RIGHT GROIN DRESSING C/D/I. NO S/S OF HEMATOMA NOTED. CALL LIGHT WITHIN REACH. VSS AT THIS TIME.
--- NOTE | 2019-11-10 10:29 | NUR ---
PT IN SUPINE POSITION. CALL LIGHT WITHIN REACH. PT VOIDED 250 cc OF CLEAR YELLOW URINE WITHOUT DIFFICULTY IN URINAL. VSS. NO OTHER NEEDS AT THIS TIME. CALL LIGHT WITHIN REACH. FAMILY AT BEDSIDE.
--- NOTE | 2019-11-10 11:00 | NUR ---
RIGHT GROIN DRESSING C/D/I. NO S/S OF HEMATOMA NOTED. CALL LIGHT WITHIN REACH. VSS AT THIS TIME. NO NEEDS. FAMILY AT BEDSIDE.
--- NOTE | 2019-11-10 11:30 | NUR ---
RIGHT GROIN DRESSING C/D/I. NO S/S OF HEMATOMA NOTED. CALL LIGHT WITHIN REACH. VSS AT THIS TIME. FAMILY AT BEDSIDE.
--- NOTE | 2019-11-10 12:00 | NUR ---
RIGHT GROIN DRESSING C/D/I. NO S/S OF HEMATOMA NOTED. HEAD OF BED INC TO 30 DEGREES. TOLERATED WELL. SET UP WITH SANDWICH TRAY AND DRINK AT THIS TIME.
--- NOTE | 2019-11-10 12:40 | NUR ---
RIGHT GROIN DRESSING C/D/I. NO S/S OF HEMATOMA NOTED. PIV D/C'D WITH CATH TIP INTACT. TOLERATED WELL. DISCUSSED DISCHARGE INSTRUCTIONS WITH PT. HE VOICED UNDERSTANDING.
--- NOTE | 2019-11-10 12:41 | NUR ---
PT INSTRUCTED TO GET UP AND DRESSED AT THIS TIME. CALL LIGHT WITHIN REACH.
--- NOTE | 2019-11-10 12:45 | NUR ---
PT AMBULATED TO RESTROOM. VOIDED WITHOUT DIFFICULTY. STEADY GAIT NOTED.
--- NOTE | 2019-11-10 13:00 | NUR ---
PT TAKEN DOWN TO VEHICLE BY WHEELCHAIR. NO S/S OF DISTRESS NOTED. ALL BELONGINGS AND PAPERWORK IN HAND.
--- NOTE | 2019-11-11 15:43 | OP ---
PATIENT NAME: BRIGIDA NY MEDICAL RECORD: [id number] :53 LOCATION:D.CAT ADMISSION DATE: SURGEON: CINDY MUSTAFA MD DATE OF OPERATION: 11/10/2019 PROCEDURE: PTCA stent report. DESCRIPTION OF PROCEDURE: After a 6-Welsh sheath placed in right femoral artery, XB LAD guiding catheter provided good guide catheter support. Initial films confirmed previously dictated restenosis of 80% in the stent itself and a more diffuse 80% end-stent restenosis. A 300 cm Whisper wire placed across both lesions in the LAD down this portion of vessel. Proximally, we deployed a 3.5 x 18 [place] drug-eluting stent up to 14 atmospheres. Next, using the stent balloon, we went distally to the in-stent restenosis and inflated up to 10 atmospheres. Final angiography shows excellent resolution of an 80% in-stenosis, no significant residual and an 80% end-stenosis, no significant residual. RAIMUNDO flow was 3 throughout the procedure. Heparin was used during the case. The patient was placed on Plavix. Sheath was closed with ExoSeal device. TRANSINT:[id number] Voice Confirmation ID: [id number] DOCUMENT ID: [id number] CINDY MUSTAFA MD at 1543 CC: [id number] DICTATION DATE: 11/10/19902 ENVIRONMENTAL CONFLICT MANAGER: 11/10/192003 DEP CLI 11/10/19 [address] [place] [address]
--- NOTE | 2019-11-11 15:43 | HP ---
PATIENT: BRIGIDA NY MEDICAL RECORD: [id number] ACCOUNT: [id number] LOCATION:PRERNA : 53 ADMISSION DATE: 11/10/19 PCP: NIRAV CHUNG DO HISTORY AND PHYSICAL EXAMINATION HISTORY OF PRESENT ILLNESS: A 63-year-old gentleman with a known history of coronary artery disease, status post PCI intervention to the right. He is being brought back for intervention to the LAD. PAST MEDICAL HISTORY: Includes: 1. History of hypertension. 2. Hyperlipidemia. 3. Coronary artery disease. 4. Diabetes mellitus. MEDICATIONS: Include metformin 1 gram b.i.d., Benicar 40 every day, diltiazem 60 t.i.d., Sinemet 25/100 q.6. PHYSICAL EXAMINATION: GENERAL: Pleasant gentleman, in no acute distress, appears stated age. HEENT: Normocephalic, atraumatic. NECK: No JVD or bruit. HEART: Regular. LUNGS: Good air excursion. ABDOMEN: Soft, nontender. EXTREMITIES: Pulses 2+ with no edema. IMPRESSION: Continued angina post-intervention to right. PLAN: Intervention to LAD in the near future. TRANSINT:[id number] Voice Confirmation ID: [id number] DOCUMENT ID: [id number] CINDY MUSTAFA MD at 1543 CC: [id number] DICTATION DATE: 11/10/19821 CASE COORDINATOR: 11/10/19 1232 DEP CLI 11/10/19 [address] [address] [place] [address]
== END 2019-11-10 13:00 | disposition home or self-care (01) ==
LOC: D.CATH 06:42
PROVIDERS: ATTEND Internal Medicine Interventional Cardiology
DX: I25.110 Atherosclerotic heart disease of native coronary artery with unstable angina pectoris (principal); I10 Essential (primary) hypertension; E78.5 Hyperlipidemia, unspecified; E11.9 Type 2 diabetes mellitus without complications; Z79.84 Long term (current) use of oral hypoglycemic drugs